=== PATIENT | male | born 1960 | race Two or more races ===

== ENCOUNTER 2024-05-13 10:27 | Inpatient (IN) | payer OTHER ==
[2024-05-13 12:24] VITALS: BMI 21.2
[2024-05-13] MEDS ORDERED: BENZONATATE 200 MG CAPSULE PO PRN (13:54)
[2024-05-13] MEDS ORDERED: IBUPROFEN 600 MG TABLET (FP) PO PRN (13:54)
[2024-05-13] MEDS ORDERED: POLYETHYLENE GLYCOL (HEALTHYLAX) 3350 17 GM PACKET PO PRN (13:54)
[2024-05-13] MEDS ORDERED: NALOXONE (NARCAN) HCL 4 MG/0.1 ML SPRAY NS PRN (13:54)
[2024-05-13] MEDS ORDERED: ONDANSETRON *ODT* 4 MG TABLET SL PRN (13:54)
[2024-05-13] MEDS ORDERED: ACETAMINOPHEN 325 MG TABLET (FP) PO PRN (13:54)
[2024-05-13] MEDS ORDERED: MAG HYDROX/AL HYDROX/SIMETH 30 ML UNIT-DOSE CUP PO PRN (13:54)
[2024-05-13] MEDS ORDERED: BISMUTH SUBSALICYLATE 524 MG/30 ML PO PRN (13:54)
[2024-05-13] MEDS ORDERED: BENZOCAINE/MENTHOL (CHLORASEPTIC ) LOZENGE MM PRN (13:54)
[2024-05-13] MEDS ORDERED: IBUPROFEN 400 MG TABLET (FP) PO PRN (13:54)
[2024-05-13] MEDS ORDERED: LOPERAMIDE HCL 2 MG CAPSULE PO PRN (13:54)
[2024-05-13] MEDS ORDERED: guaiFENesin 600 MG TABLET.ER (FP) PO PRN (13:54)
[2024-05-13] MEDS ORDERED: hydrOXYzine PAMOATE 25 MG CAPSULE (FP) PO PRN (13:54)
[2024-05-13] MEDS ORDERED: NALOXONE HCL 0.4 MG/ML VIAL IM PRN (13:54)
[2024-05-13] MEDS ORDERED: MAGNESIUM HYDROX 2400MG/30ML ORAL SUSPENSION 30 ML CUP PO PRN (13:54)
[2024-05-14] MEDS: MELATONIN 5 MG TABLETS PO SCH (00:08)
[2024-05-14] MEDS: THIAMINE 100 MG TABLET PO SCH (00:08)
[2024-05-14] MEDS: LISINOPRIL 10 MG TABLET PO SCH (09:40)
[2024-05-14] MEDS: PRENATAL VITAMINS W/ FOLIC ACID TABLET (FP) PO SCH (09:40)
[2024-05-14] MEDS ORDERED: diazePAM 5 MG TABLET PO PRN (10:19)
[2024-05-14] MEDS: diazePAM 5 MG TABLET PO SCH (10:43)
[2024-05-14 11:20] LABS: CHLORIDE 107 mmol/L (98-107); POTASSIUM 4.2 mmol/L (3.5-5.1); SODIUM 143 mmol/L (136-145)
[2024-05-14 11:26] LABS: ALBUMIN 3.8 g/dl (3.4-5.0); ANION GAP 6 mmol/L (4-13); CALCIUM 9.2 mg/dL (8.5-10.1); CO2 30 mmol/L (21-32); GLUCOSE,RANDOM 84 mg/dL (74-106); HEMOGLOBIN 13.5 GM/dL (11.7-16.9); MCH 27.3 pg (25.7-33.7); MEAN CELL VOLUME 82.7 fl (80-96); MEAN PLT VOLUME 7.9 fl (7.5-11.1); PLATELET COUNT 245 10^3/uL (134-434); RBC 4.96 M/mm3 (4.00-5.60); RDW 14.9 % (11.9-15.9); WHITE BLOOD COUNT 3.4 K/mm3 (4.0-10.0)
[2024-05-14 11:27] LABS: SGOT/AST 23 U/L (15-37)
[2024-05-14 11:29] LABS: CREATININE 1.2 mg/dL (0.55-1.3)
[2024-05-14 11:30] LABS: SGPT/ALT 32 U/L (13-61)
[2024-05-14 11:32] LABS: BILIRUBIN,TOTAL 0.5 mg/dL (0.2-1)
[2024-05-14 11:33] LABS: ALK PHOS 109 U/L (45-117)
[2024-05-14] MEDS: METHOCARBAMOL 500 MG TABLET PO PRN (22:32)
[2024-05-16] MEDS: diazePAM 5 MG TABLET PO SCH (05:51)
[2024-05-17] MEDS: diazePAM 5 MG TABLET PO SCH (05:41)
[2024-05-18] MEDS: diazePAM 5 MG TABLET PO ONE (05:29)
[2024-05-18 09:17] VITALS: BP 116/68; PULSE 76; RESP 18; TEMP 98.7
== END 2024-05-18 09:10 | disposition home or self-care (01) | DRG 897 ==
LOC: YASAS 10:27 → Y3N 13:55
PROVIDERS: ADMIT Allergy & Immunology; ATTEND Surgery
PROC: HZ2ZZZZ Detoxification Services for Substance Abuse Treatment (ICD-10-PCS; principal; 2024-05-13)
DX: F10.230 Alcohol dependence with withdrawal, uncomplicated (principal); F14.20 Cocaine dependence, uncomplicated; Z59.00 Homelessness unspecified; F12.20 Cannabis dependence, uncomplicated; F43.10 Post-traumatic stress disorder, unspecified; F32.A Depression, unspecified; F41.9 Anxiety disorder, unspecified; I10 Essential (primary) hypertension; M25.562 Pain in left knee; Z91.148 Patient's other noncompliance with medication regimen for other reason; Z91.51 Personal history of suicidal behavior; Z56.0 Unemployment, unspecified
CPT/HCPCS: 36415; 80053; 80305; 80307; 85027; 86780; 93005; 93010